=== PATIENT | female | born 1970 | race Caucasian/White ===

== ENCOUNTER → 2023-05-29 09:31 | Outpatient (REF) | payer OTHER, SELFPAY | LOC: RAD 09:31 | PROVIDERS: ATTENDING PHYSICIAN Physician Assistant | DX: M79.672 Pain in left foot (principal) | CPT/HCPCS: 73630 ==

== ENCOUNTER → 2024-01-08 17:42 | Outpatient (REF) | payer OTHER, SELFPAY | LOC: RAD 17:42 | PROVIDERS: ATTENDING PHYSICIAN Physician Assistant Medical | DX: M25.512 Pain in left shoulder (principal) | CPT/HCPCS: 73030 ==

== ENCOUNTER 2024-07-11 08:51 | Emergency (ER) | payer OTHER, SELFPAY ==
[2024-07-11 09:00] VITALS: BP 134/89
[2024-07-11 09:48] VITALS: BMI 29.8
[2024-07-11 10:11] LABS: Urine Albumin 3+ (Neg - Trace); Urine Bilirubin Negative (Negative); Urine Character Bloody (Clear); Urine Color Red; Urine Glucose Negative (Negative); Urine Ketone 3+ (Negative); Urine Leukocyte Negative (Negative); Urine Nitrite Negative (Negative); Urine Occult Blood 4+ (Negative); Urine Urobilinogen Negative (Neg - 1+); Urine pH 6.5 (5.0-9.0)
[2024-07-11 10:34] LABS: Urine Calcium Oxalate Crystals Seen; Urine White Cell 0-2 /HPF (0-5)
[2024-07-11 10:36] LABS: % Basophils 0.6 % (0-2); % Eosinophils 0.8 % (0-6); % Immature Granulocytes 0.3 % (0-0.5); % Lymphocytes 18.8 % (20.5-51.1); % Monocytes 6.9 % (1.7-9.3); % Neutrophils 72.6 % (42.2-75.2); Absolute Eosinophils 0.1 10^3/uL (0-0.7); Absolute Lymphocytes 1.2 10^3/uL (1.2-3.4); Absolute Monocytes 0.4 10^3/uL (0.1-0.6); Absolute Neutrophils 4.5 10^3/uL (1.4-6.5); Hematocrit 43.7 % (37.0-47.0); Hemoglobin 14.9 g/dL (12.0-16.0); Mean Corp Hgb Conc. 34.1 g/dL (33.0-37.0); Mean Corpuscular Hgb 30.4 pg (27.0-31.0); Mean Corpuscular Volume 89.2 fL (81.0-99.0); Mean Platelet Volume 9.4 fL (7.4-10.4); Nucleated Red Blood Cells % 0 %; Platelet Count 267 10^3/uL (130-400); Red Cell Dist. Width 11.9 % (11.5-14.5); White Blood Cell Count 6.3 10^3/uL (4.8-10.8)
[2024-07-11 10:36] LABS: Urine Red Blood Cell >100 /HPF (0-2)
[2024-07-11 10:51] LABS: ALT (SGPT) 27 U/L (0-35); AST (SGOT) 22 U/L (14-36); Albumin 4.8 g/dl (3.5-5.0); Alkaline Phosphatase 54 U/L (38-126); Blood Urea Nitrogen 18 mg/dl (7-17); Calcium 9.5 mg/dl (8.4-10.2); Carbon Dioxide 25 mmol/L (22-30); Chloride 105 mmol/L (98-107); Estimated Creatinine Clearance 105 ml/min; Glucose 97 mg/dl (70-99); Potassium 3.9 mmol/L (3.5-5.1); Sodium 140 mmol/L (135-145); Total Bilirubin 0.5 mg/dl (0.2-1.3); Total Protein 7.4 g/dl (6.3-8.2); eGFR > 60.00
[2024-07-11 12:22] VITALS: BP 126/87
--- NOTE | 2024-07-11 12:49 | ED.GENMED ---
History of Present Illness
General
Chief Complaint: Urinary Symptoms
Source: patient
Exam Limitations: none
Time Seen by Provider: 07/11/24 09:50
History of Present Illness
History of Present Illness:
54-year-old female presents complaining of blood in urine over the past 2 days intermittently. No significant pain but does note increased urgency to urinate. No fever no nausea vomiting. No fevers. No prior history of kidney stone. No history
of smoking. Last menstrual cycle was over 5 years ago. She knows for fact this is urinary bleeding vaginal bleeding or rectal bleeding.
Phy Exam
Physical Exam
Physical Exam:
General: Well-appearing female no acute respiratory distress
HEENT: Normocephalic atraumatic
Heart: Regular rate and rhythm no murmurs
Lungs: Clear no wheeze
Abdomen is soft nontender nondistended no guarding rebound normal bowel sounds
Extremities: No cyanosis
Course
Orders/Labs/Results
Orders:
Orders
07/11/24 09:49
UA Reflex to Culture [Urinalysis Reflex To Culture] Urgent
Date Specimen was Collected: 07/11/24
Time Specimen was Collected: 09:41
Urine Microscopic Reflex Cult Urgent
07/11/24 10:06
CT Abd/pel Without Iv Or Oral Urgent
Comment:
Reason For Exam: hematuria
07/11/24 10:17
Complete Blood Count/With Diff Urgent
Comprehensive Metabolic Panel Urgent
Abnormal Lab Results
07/11/24 07/11/24
09:49 10:17
Lymphocytes % 18.8 L %
(20.5-51.1)
BUN 18 H mg/dl
(7-17)
Urine Ketones 3+ A
(Negative)
Ur Occult Blood Reflex 4+ A
(Negative)
Urine RBC >100 A /HPF
(0-2)
Urine Albumin (Reflex) 3+ A
(Neg - Trace)
07/11/24 10:17
07/11/24 10:17
Vital Signs
Initial and Last Documented VS:
Initial Vital Signs
Temp Pulse Resp BP Pulse Ox
98.2 F 86 16 134/89 99
07/11/24 09:00 07/11/24 09:00 07/11/24 09:00 07/11/24 09:00 07/11/24 09:00
Last Documented Vital Signs
Temp Pulse Resp BP Pulse Ox
98.2 F 96 18 126/87 97
07/11/24 09:00 07/11/24 12:22 07/11/24 12:22 07/11/24 12:22 07/11/24 12:22
MDM/Problems Addressed
Differential Diagnosis Includes:
Patient with hematuria. Consider cystitis versus caused by renal stone versus bladder polyp.
Urinalysis shows hematuria but no sign of infection. CT ordered which demonstrates punctate stone at the UVJ on the left side. This is likely the source of the patient's hematuria. Patient is relatively pain-free. Recommended hydration and
follow-up with urology. Stable for discharge.
*Critical Care Note
Total Time (30-74mins, 75-104mins- exclusive of procedures): Not Applicable
ED Attending Note
-
Portions of this chart may have been created with voice recognition software.� Occasional wrong word or��sound alike� substitutions may have occurred due to the inherent limitations of voice recognition software.
Discharge Plan
Departure
Patient Disposition: Home (Routine Discharge)
Date of Disposition: 07/11/24
Time of Disposition: 12:52
Patient with high blood pressure during this ER visit?: No
Discharge Problem:
Kidney stone, Hematuria
Instructions: Blood in the Urine (Hematuria), Adult (DC)
Referrals:
Goldie Garrison PA-C [Family Provider, Family Practice]
Braden Presley MD [Active, Urology]
Activity Restrictions/Additional Instructions:
Drink plenty of fluids. Strain the urine. Use ibuprofen or Tylenol if needed for pain. Follow-up with urology otherwise.
Interventions
Interventions:
*Risk Screen - Suicide Last Done: 07/11/24 09:46
*General Assessment Last Done: 07/11/24 09:46
*Neglect/Abuse Screening Last Done: 07/11/24 09:46
*ED- Fall Risk Assessment Last Done: 07/11/24 09:46
*ED COVID-19 Vaccine History Last Done: 07/11/24 09:46
ED-Female Genitourinary Assessment Last Done: 07/11/24 12:22
Discharge Date and Time
Print Language: [id number]
== END 2024-07-11 13:10 | disposition home or self-care (01) ==
LOC: EMR 08:51
PROVIDERS: Physician Assistant; Student in an Organized Health Care Education/Training Program; EMERGENCY PHYSICIAN Emergency Medicine; FAMILY PHYSICIAN Physician Assistant Medical
DX: N13.2 Hydronephrosis with renal and ureteral calculous obstruction (principal); R31.9 Hematuria, unspecified
CPT/HCPCS: 99285; 74176; 80053; 81003; 81015; 85025

== ENCOUNTER → 2024-12-04 07:21 | Outpatient (REF) | payer OTHER, SELFPAY ==
[2024-12-04 08:04] LABS: Hematocrit 43.5 % (37.0-47.0); Hemoglobin 13.9 g/dL (12.0-16.0); Mean Corp Hgb Conc. 32.0 g/dL (33.0-37.0); Mean Corpuscular Volume 92.2 fL (81.0-99.0); Nucleated Red Blood Cells % 0 %; Platelet Count 239 10^3/uL (130-400); Red Cell Dist. Width 12.0 % (11.5-14.5)
[2024-12-04 08:45] LABS: Blood Urea Nitrogen 23 mg/dl (7-17); Calcium 9.3 mg/dl (8.4-10.2); Carbon Dioxide 26 mmol/L (22-30); Chloride 107 mmol/L (98-107); Glucose 112 mg/dl (70-99); Potassium 3.9 mmol/L (3.5-5.1); Sodium 138 mmol/L (135-145); eGFR > 60.00
== END ==
LOC: RCS 07:21
PROVIDERS: ATTENDING PHYSICIAN Orthopaedic Surgery Hand Surgery; FAMILY PHYSICIAN Physician Assistant Medical
DX: Z01.818 Encounter for other preprocedural examination (principal)
CPT/HCPCS: 36415; 80048; 85025; 93005

== ENCOUNTER → 2025-01-02 17:17 | Outpatient (REF) | payer OTHER, SELFPAY | LOC: MRI 3T 17:17 | PROVIDERS: ATTENDING PHYSICIAN Physician Assistant; FAMILY PHYSICIAN Physician Assistant Medical | DX: H90.A21 Sensorineural hearing loss, unilateral, right ear, with restricted hearing on the contralateral side (principal) | CPT/HCPCS: 70553; A9575 ==